=== PATIENT | male | born 1975 | race Caucasian/White ===

== ENCOUNTER 2019-04-21 15:30 | Observation (INO) | payer SELFPAY ==
[2019-04-20] MEDS: ACETAMINOPHEN 500 MG TAB (TYLENOL) PO ONE (20:45)
[~2019-04-21] VITALS: Ht 162.6 cm; Wt 64.0 kg
[2019-04-21] MEDS ORDERED: NS IV 1000 ML 1,000 ML IV SCH (15:49)
[2019-04-21] MEDS ORDERED: NS IV 500 ML 500 ML IV ONE (15:49)
--- NOTE | 2019-04-21 15:59 | ED Fever ---
History of Present Illness General Stated Complaint: HEADACHES,FEVER Source: patient, other Exam Limitations: no limitations (JOSUE HILTON) History of Present Illness Date Seen by Provider: Apr 21, 2019 Time Seen by Provider: 15:30 Initial Comments Patient presents the ER from the urgent care where he was seen in [place], [place] with chief complaint of symptoms starting Sunday including fever Tmax of 102.5, headache, dysuria, right flank pain. No history of kidney stones. No significant medical history. Denies any surgeries. No trauma. No sick contacts. [place] has been in the country for about 2 months originating from [place]. He works with a [employer]. He has not used any antibiotics. He did use some [id number]-[id number] medicine that has phenylephrine, chlorpheniramine and paracetamol in it recently. He says it did not help the headache much. He does not have a history of headaches. No vomiting diarrhea or constipation. Last bowel movement was about 11:00 this morning and was normal, well formed. He has some mild discomfort in epigastric. He does not recall any tick bite, spider bite, bug bite. He did have a itchy rash on his right shoulder that he been treating with lotion for the past couple weeks. For the past 4 days that he's had fever he's also had night sweats and difficulty sleeping. No cough shortness of breath chest pain. (JOSUE IHLTON) Allergies and Home Medications Allergies Coded Allergies: No Known Drug Allergies (Unverified , 04/21/19) Patient Home Medication List Home Medication List Reviewed: Yes (JOSUE HILTON) Review of Systems Review of Systems Constitutional: chills, diaphoresis (night), fever, malaise EENTM: No ear discharge, No hearing loss, No ear pain, No eye pain, No vision loss, No dental problems, No hoarseness, No mouth pain, No nose congestion, No t hroat pain, No throat swelling Respiratory: No cough, No short of breath, No wheezing Cardiovascular: No chest pain, No edema, No Hx of Intervention, No palpitations Gastrointestinal: abdominal pain (occ mild epigastric); No constipation, No diarrhea, No loss of appetite, No nausea, No vomiting Genitourinary: No decreased output, No discharge Musculoskeletal: No back pain, No joint pain Skin: see HPI, pruritus, rash (resolving) (JOSUE HILTON) Past Psnuemz-Ctrlrw-Xuhlil Hx Patient Social History Alcohol Use: Denies Use Recreational Drug Use: No Smoking Status: Never a Smoker Recent Foreign Travel: No Contact w/Someone Who Travel: No (JOSUE HILTON) Physical Exam Vital Signs - First Documented 04/20/19 04/21/19 20:45 15:40 Temp 100.7 Pulse 126 Resp 20 B/P (MAP) 148/83 (104) Pulse Ox 96 (ROVERTO AGUIRRE DO) Capillary Refill : (JOSUE HILTON) Height: '" Weight: lbs. oz. kg; BMI Method: General Appearance: WD/WN, no apparent distress Eyes: Bilateral Eye Normal Inspection, Bilateral Eye PERRL, Bilateral Eye EOMI HEENT: PERRL/EOMI, normal ENT inspection, TMs normal, pharynx normal Neck: non-tender, full range of motion, supple, normal inspection Respiratory: chest non-tender, lungs clear, normal breath sounds, no respiratory distress, no accessory muscle use Cardiovascular: normal peripheral pulses, regular rate, rhythm, no edema, no murmur Gastrointestinal: normal bowel sounds, non tender, soft, no organomegaly, no pulsatile mass; No guarding; other (negative for psoas signs, mesenteric signs, Rovsing sign, Gunderson's sign, McBurney's point tenderness or rebound tenderness.) Extremities: normal range of motion, non-tender, normal inspection, no pedal edema, no calf tenderness, normal capillary refill Neurologic/Psychiatric: alert, normal mood/affect, oriented x 3 Skin: normal color, warm/dry, other (faint dry scaling skin, slightly melanotic over his right shoulder possibly consistent with a fungal rash that appears to be resolving. No bug bites noted on skin survey.) Tenderness to percussion of the right CVA. (JOSUE HILTON) Focused Exam Lactate Level 04/21/19 15:50: Lactic Acid Level 1.07 (ROVERTO AGUIRRE DO) Lactic Acid Level Laboratory Tests Test 04/21/19 15:50 Lactic Acid Level 1.07 MMOL/L (0.50-2.00) (ROVERTO AGUIRRE DO) Procedures/Interventions Discussed Risk,Benefits: Yes Patient Consents: Yes Opening Pressure: 14 Fluid Color: CLEAR Size of Disposal Tray Used: Adult PERFORMED BY S. DANILO, DRUG INSPECTOR (ROVERTO AGUIRRE DO) Progress/Results/Core Measures Suspected Sepsis SIRS Temperature: Pulse: Respiratory Rate: Laboratory Tests 04/21/19 15:50: White Blood Count 9.1 Blood Pressure / Mean: 04/21/19 15:50: Lactic Acid Level 1.07 Laboratory Tests 04/21/19 15:50: Creatinine 1.18, INR Comment 1.0, Platelet Count 177, Total Bilirubin 0.4 (JOSUE HILTON) Results/Orders Lab Results Laboratory Tests Test 04/21/19 15:50 04/21/19 16:00 04/21/19 16:30 04/21/19 19:57 Range/Units White Blood Count 9.1 4.3-11.0 10^3/uL Red Blood Count 4.67 4.35-5.85 10^6/uL Hemoglobin 13.1 L 13.3-17.7 G/DL Hematocrit 39 L 40-54 % Mean Corpuscular Volume 83 80-99 FL Mean Corpuscular Hemoglobin 28 25-34 PG Mean Corpuscular Hemoglobin Concent 34 32-36 G/DL Red Cell Distribution Width 12.7 10.0-14.5 % Platelet Count 177 130-400 10^3/uL Mean Platelet Volume 9.6 7.4-10.4 FL Neutrophils (%) (Auto) 62 42-75 % Lymphocytes (%) (Auto) 22 12-44 % Monocytes (%) (Auto) 11 0-12 % Eosinophils (%) (Auto) 4 0-10 % Basophils (%) (Auto) 1 0-10 % Neutrophils # (Auto) 5.7 1.8-7.8 X 10^3 Lymphocytes # (Auto) 2.0 1.0-4.0 X 10^3 Monocytes # (Auto) 1.0 0.0-1.0 X 10^3 Eosinophils # (Auto) 0.4 H 0.0-0.3 10^3/uL Basophils # (Auto) 0.1 0.0-0.1 10^3/uL Prothrombin Time 13.4 12.2-14.7 SEC INR Comment 1.0 0.8-1.4 Activated Partial Thromboplast Time 30 24-35 SEC Sodium Level 136 135-145 MMOL/L Potassium Level 3.8 3.6-5.0 MMOL/L Chloride Level 101 98-107 MMOL/L Carbon Dioxide Level 26 21-32 MMOL/L Anion Gap 9 5-14 MMOL/L Blood Urea Nitrogen 13 7-18 MG/DL Creatinine 1.18 0.60-1.30 MG/DL Estimat Glomerular Filtration Rate > 60 BUN/Creatinine Ratio 11 Glucose Level 113 H 70-105 MG/DL Lactic Acid Level 1.07 0.50-2.00 MMOL/L Calcium Level 9.1 8.5-10.1 MG/DL Corrected Calcium 8.9 8.5-10.1 MG/DL Total Bilirubin 0.4 0.1-1.0 MG/DL Aspartate Amino Transf (AST/SGOT) 77 H 5-34 U/L Alanine Aminotransferase (ALT/SGPT) 106 H 0-55 U/L Alkaline Phosphatase 103 40-136 U/L Total Protein 8.2 6.4-8.2 GM/DL Albumin 4.2 3.2-4.5 GM/DL Monoscreen NEGATIVE NEGATIVE Group A Streptococcus Screen NEGATIVE NEGATIVE Urine Color YELLOW Urine Clarity CLEAR Urine pH 6 5-9 Urine Specific [place] 1.020 1.016-1.022 Urine Protein 3+ H NEGATIVE Urine Glucose (UA) NEGATIVE NEGATIVE Urine Ketones 1+ H NEGATIVE Urine Nitrite NEGATIVE NEGATIVE Urine Bilirubin NEGATIVE NEGATIVE Urine Urobilinogen NORMAL NORMAL MG/DL Urine Leukocyte Esterase 1+ H NEGATIVE Urine RBC (Auto) 2+ H NEGATIVE Urine RBC NONE /HPF Urine WBC 2-5 /HPF Urine Squamous Epithelial Cells RARE /HPF Urine Crystals NONE /LPF Urine Bacteria MODERATE H /HPF Urine Casts NONE /LPF Urine Mucus MODERATE H /LPF Urine Culture Indicated CULTURE PENDING CSF Tube Number 4 CSF Appearance CLEAR CSF Color COLORLESS CSF WBC 0 0-5 CELLS CSF RBC 2 H 0-0 CELLS CSF Lymphocytes % CSF Mononuclear WBCs % CSF Polynuclear WBCs % CSF Glucose 58 50-80 MG/DL CSF Total Protein 28 15-40 MG/DL Test 04/21/19 21:21 Range/Units (ROVERTO AUGIRRE DO) Micro Results Microbiology 04/21/19 Influenza Types A,B Antigen (JAMES) - Final, Complete (TIMOTHYROVERTO K ) My Orders Orders - ROVERTO AGUIRRE DO Monotest (04/21/19 18:24) Csf Cell Count (8/26/19 20:07) Csf Glucose (04/21/19 20:07) Csf Total Protein (04/21/19 20:07) Csf Culture (04/21/19 20:07) Ed Iv/Invasive Line Start (04/21/19 20:19) Lactated Ringers (Lr 1000 Ml Iv Solution (04/21/19 20:19) Acetaminophen Tablet (Tylenol Tablet) (04/21/19 20:30) Hepatitis Panel Acute (04/21/19 21:14) Tick Panel With Lyme Eia (04/21/19 21:14) West Nile Virus G&M Hansa Csf (04/21/19 21:14) West Nile Virus Igg & M (04/21/19 21:14) Doxycycline Injection (Vibramycin Inject (04/21/19 21:45) Cmv Igg & Igm Ab (04/21/19 21:31) Nina Ponce Virus Profile (04/21/19 21:31) (ROVERTO AGUIRRE DO) Medications Given in ED Current Medications Medications Dose Ordered Sig/Isaac Route Start Time Stop Time Status Last Admin Dose Admin Acetaminophen 1,000 mg ONCE ONCE PO 04/21/19 20:30 04/21/19 20:31 DC 04/20/19 20:45 1,000 MG Cefepime HCl 1000 mg/Sterile Water 10 ml @ 200 mls/hr ONCE ONCE IV 04/21/19 16:00 04/21/19 16:02 DC 04/21/19 16:15 200 MLS/HR Doxycycline Hyclate 100 mg/ Sodium Chloride 100 ml @ 100 mls/hr ONCE ONCE IV 04/21/19 21:45 04/21/19 22:44 04/21/19 21:45 100 MLS/HR Ketorolac Tromethamine 30 mg ONCE ONCE IVP 04/21/19 16:00 04/21/19 16:01 DC 04/21/19 16:15 30 MG Lactated Ringer's 1,000 ml @ 0 mls/hr Q0M ONCE IV 04/21/19 20:19 04/21/19 20:20 DC 04/21/19 20:25 0 MLS/HR Pantoprazole 40 mg ONCE ONCE IV 04/21/19 16:00 04/21/19 16:01 DC 04/21/19 16:15 40 MG Sodium Chloride 500 ml @ 0 mls/hr Q0M ONCE IV 04/21/19 15:49 04/21/19 15:52 DC 04/21/19 17:20 500 MLS/HR (ROVERTO AGUIRRE DO) Vital Signs/I&O 04/20/19 04/21/19 04/21/19 20:45 15:40 16:15 Temp 100.7 103.3 103.3 Pulse 126 Resp 20 B/P (MAP) 148/83 (104) Pulse Ox 96 (ROVERTO AGUIRRE DO) Vital Signs/I&O Capillary Refill : (JOSUE HILTON) Progress Note #1: Time: 16:00 Progress Note Temperature 103.3 tympanic. Ketorolac for his discomfort and fever. He's having urinary symptoms so we'll haydee those first but if his urine looks clean then I would get a CT of his head and consider a lumbar puncture. Chest x-ray, septic workup, cefepime. Progress Note #2: Time: 17:30 Progress Note The patient is feeling better and his fever is coming down. There are red blood cells in the dipstick but not on the micro-. It is possible that the red blood cells have lysed. Plan to get a CT of the abdomen pelvis kidney stone study. While we have it we'll get a CT of his head since he did have a fever and headache. White blood cells and the rest of his workup are fairly benign. Very mild transaminitis be worked up outpatient. Mild anemia. (JOSUE HILTON) Progress Note : Progress Note 182--ASSUMED CARE FROM DR. HILTON, CT RESULTS PENDING PT STATES HE IS FEELING BETTER, HEADACHE IS ONLY VERY MILD AND DECLINES ANY MEDICATION FOR HEADACHE AT THIS TIME TEMP STARTED TO GO UP AGAIN--UP TO 100.1--ADDITIONAL TYLENOL AND FLUIDS ORDERED. VITALS REMAINED STABLE NO DETERIORATION IN PT'S CONDITION DURING ER STAY (ROVERTO AGUIRRE DO) Diagnostic Imaging Diagonstic Imaging: Xray Plain Films/CT/US/NM/MRI: chest (2v) Comments NAME: [facility] REC#: [id number] PHYSICIAN: JOSUE HILTON MD CC: TERELL DYE DO; JOSUE HILTON Page 1 of 1 RADIOLOGY REPORT [facility] [place] [place] CC: TERELL DYE DO; JOSUE HILTON Page 1 of 1 RADIOLOGY REPORT NAME: [facility] REC#: [id number] PT STATUS: REG ER : 1975 PHYSICIAN: JOSUE HILTON MD ADMIT DATE: 04/21/19/ER Signed Date of Exam: 04/21/19 CHEST PA/LAT (2 VIEW) INDICATION: Fever, inability to urinate. TECHNIQUE: Two view chest 4:40 PM CORRELATION STUDY: None FINDINGS: The heart size is upper limits of normal. The mediastinal configuration and pulmonary vasculature are within normal limits. The lungs are clear with no consolidating infiltrate. There is no significant pleural effusion or pneumothorax. Visualized osseous structures are unremarkable. IMPRESSION: 1. No radiographic evidence for acute abnormality of the chest. Dictated by: Dictated on workstation # [id number] Dict: 04/21/191654 Trans: 04/21/191703 Interpreted by: TERELL DYE DO Electronically signed by: TERELL DYE DO 04/21/191703 Reviewed: Reviewed by Nc Diagonstic Imaging: CT (without IV contrast) Plain Films/CT/US/NM/MRI: head Comments NAME: [facility] REC#: [id number] PHYSICIAN: JOSUE HILTON MD CC: SARAY SCHMIDT MD; JOSUE HILTON Page 1 of 1 RADIOLOGY REPORT [facility] [place], [place] CC: SARAY SCHMIDT MD; JOSUE HILTON Page 1 of 1 RADIOLOGY REPORT NAME: [facility] REC#: [id number] PT STATUS: REG ER : 1975 PHYSICIAN: JOSUE HILTON MD ADMIT DATE: 04/21/19/ER Signed Date of Exam: 04/21/19 CT HEAD WO PROCEDURE: CT head without contrast. TECHNIQUE: Multiple contiguous axial images were obtained through the brain without the use of intravenous contrast. Auto Exposure Controls were utilized during the CT exam to meet ALARA standards for radiation dose reduction. INDICATION: Headache and fever. COMPARISON: None available. FINDINGS: No hyperdense hemorrhage or space-occupying mass. No hydrocephalus or midline shift. Hardin-white matter differentiation is preserved. Basilar cisterns are patent. No fracture of the skull. Mastoid air cells and paranasal sinuses are clear. Orbits are normal. IMPRESSION: No acute intracranial process by CT. Dictated by: Dictated on workstation # [id number] Dict: 04/21/191821 Trans: 04/21/191838 Interpreted by: SARAY SCHMIDT MD Electronically signed by: SARAY SCHMIDT MD 04/21/191838 Reviewed: Reviewed by Nc Diagonstic Imaging: CT (without IV contrast kidney stone study) Plain Films/CT/US/NM/MRI: abdomen, pelvis Comments NAME: [facility] REC#: [id number] PHYSICIAN: JOSUE HILTON MD CC: SARAY SCHMIDT MD; JOSUE HILTON Page 2 of 2 RADIOLOGY REPORT [facility] [place] [place] CC: SARAY SCHMIDT MD; JOSUE HILTON Page 1 of 2 RADIOLOGY REPORT NAME: [facility] REC#: [id number] PT STATUS: REG ER : 1975 PHYSICIAN: JOSUE HILTON MD ADMIT DATE: 04/21/19/ER Signed Date of Exam: 04/21/19 CT ABD/PELVIS WO(KIDNEY STONE) PROCEDURE: CT urinary tract, rule out kidney stone. TECHNIQUE: Multiple contiguous axial images were obtained through the abdomen and pelvis without the use of intravenous contrast. Auto Exposure Controls were utilized during the CT exam to meet ALARA standards for radiation dose reduction. INDICATION: Fever with pain during urination. COMPARISON: None available. FINDINGS: Evaluation of the abdominal viscera is mildly limited without contrast. Additionally, there is mild patient respiratory motion artifact in the upper abdomen that mildly limits assessment in this region. Lower chest: The lung bases are clear. No pericardial or pleural effusion. Peritoneum: No free intraperitoneal air or fluid. Liver and biliary system: Unenhanced liver is normal. Gallbladder is contracted without radiopaque gallstones. Spleen and Pancreas: Spleen is normal. Unenhanced pancreas is grossly normal. Adrenals: Normal. tract: A 4 mm nonobstructing stone is present in the mid aspect of the right kidney. No ureteral stones or obstructive uropathy on either side. The urinary bladder is well distended without radiopaque stones. Prostate is normal in appearance. GI tract: Stomach is partially filled with air and there is no discrete wall thickening. No bowel obstruction. No pericolonic inflammatory changes. Appendix is normal. Vasculature and Lymph nodes: Normal caliber aorta. No abdominal or pelvic lymphadenopathy. Musculoskeletal: No concerning osseous lesion. IMPRESSION: 1. There is a 4 mm nonobstructing stone in the mid aspect of the right kidney. 2. No ureteral stones or obstructive uropathy. Dictated by: Dictated on workstation # [id number] Dict: 04/21/191822 Trans: 04/21/191838 Interpreted by: SARAY SCHMIDT MD Electronically signed by: SARAY SCHMIDT MD 04/21/191838 Reviewed: Reviewed by Me (JOSUE HILTON) Comments CXR--NO ACUTE PROCESS, PER RADIOLOGIST REPORT AT 1824 CT HEAD--NO ACUTE PROCESS CT ABDOMEN/PELVIS--NO ACUTE PROCESS, NON-OBSTRUCTING RIGHT RENAL STONE PER RADIOLOGIST REPORTS AT 1834 (ROVERTO AGUIRRE DO) Departure Communication (Admissions) 1838--CALLED [facility] [facility], TO CONTACT ANESTHESIA TO DO L.P. PROCEDURE EXPLAINED TO PT AND HE AGREES TO PROCEDURE. 1929--Mandie CARRASCO CRNA HERE TO DO L.P. 2042--CALLED [facility] FOR CONSULT. 2045--ADDITIONAL INFORMATION GIVEN TO [facility]. 2052--[facility] CALLED BACK. [facility] 2105--SPOKE WITH DR. VILLANUEVA, ADVICE NOTED AND ADDITIONAL TESTS ORDERED--PE RIPHERAL SMEAR, TICK PANEL, WEST NILE PANEL. WILL ALSO ADD EBV AND CMV AND HEPATITIS PANEL . SHE ADVISES TO CONTINUE CEFEPIME, AND ADD DOXYCYCLINE AT THIS POINT, PENDING FURTHER TEST RESULTS. HER ADVICE MUCH APPRECIATED. 2120--SPOKE WITH DR. GUZMÁN, HOSPITALIST, ACCEPTS PT FOR ADMIT. (TIMOTHY,ROVERTO K DO) Impression Primary Impression: Fever Qualified Codes: R50.9 - Fever, unspecified Additional Impressions: UTI (urinary tract infection) Qualified Codes: N39.0 - Urinary tract infection, site not specified MILDLY ELEVATED LIVER ENZYMES Headache Qualified Codes: R51 - Headache Disposition: 09 ADMITTED INPATIENT Condition: Stable Admissions Decision to Admit Reason: Admit from ER (General) Decision to Admit/Date: Apr 21, 2019 Time/Decision to Admit Time: 21:25 (ROVERTO AGUIRRE DO) Departure-Patient Inst. Referrals: NO,LOCAL PHYSICIAN (PCP/Family) Primary Care Physician JOSUE HILTON Apr 21, 2019 15:59 ROVERTO AGUIRRE DO Apr 21, 2019 18:35
[2019-04-21] MEDS ORDERED: KETOROLAC 30 MG/ML VIAL IVP ONE (16:00)
[2019-04-21] MEDS ORDERED: ACETAMINOPHEN 500 MG TAB (TYLENOL) PO PRN (16:00)
[2019-04-21] MEDS ORDERED: CEFEPIME INJECTION 1,000 MG in WATER (STERILE) FOR INJECTION 10 ML IV ONE (16:00)
[2019-04-21] MEDS ORDERED: PANTOPRAZOLE 40 MG (PROTONIX) VIAL IV ONE (16:00)
[2019-04-21 16:09] LABS: BASOPHILS # (AUTO) 0.1 10^3/uL (0.0-0.1); BASOPHILS % (AUTO) 1 % (0-10); EOSINOPHILS # (AUTO) 0.4 10^3/uL (0.0-0.3); EOSINOPHILS % (AUTO) 4 % (0-10); HEMATOCRIT 39 % (40-54); HEMOGLOBIN 13.1 G/DL (13.3-17.7); LYMPHOCYTES % (AUTO) 22 % (12-44); MEAN CORPUSCULAR HEMOGLOBIN 28 PG (25-34); MEAN CORPUSCULAR HGB CONC 34 G/DL (32-36); MEAN CORPUSCULAR VOLUME 83 FL (80-99); MEAN PLATELET VOLUME 9.6 FL (7.4-10.4); MONOCYTES % (AUTO) 11 % (0-12); NEUTROPHILS # (AUTO) 5.7 X 10^3 (1.8-7.8); NEUTROPHILS % (AUTO) 62 % (42-75); PLATELET COUNT 177 10^3/uL (130-400); RED CELL DISTRIBUTION WIDTH 12.7 % (10.0-14.5); WHITE BLOOD COUNT 9.1 10^3/uL (4.3-11.0)
[2019-04-21 16:20] LABS: BILIRUBIN,URINE NEGATIVE (NEGATIVE); CLARITY,URINE CLEAR; COLOR,URINE YELLOW; GLUCOSE, URINE (UA) NEGATIVE (NEGATIVE); KETONES,URINE 1+ (NEGATIVE); LEUKOCYTE ESTERASE ,URINE 1+ (NEGATIVE); NITRITE,URINE NEGATIVE (NEGATIVE); PH,URINE 6 (5-9); PROTEIN,URINE 3+ (NEGATIVE); UROBILINOGEN,URINE NORMAL (NORMAL)
[2019-04-21 16:22] LABS: PROTHROMBIN TIME PATIENT 13.4 SEC (12.2-14.7)
[2019-04-21 16:28] LABS: ALANINE AMINOTRANSFERASE 106 U/L (0-55); ALBUMIN 4.2 GM/DL (3.2-4.5); ALKALINE PHOSPHATASE 103 U/L (40-136); BILIRUBIN,TOTAL 0.4 MG/DL (0.1-1.0); BUN/CREATININE RATIO 11; CALCIUM 9.1 MG/DL (8.5-10.1); CARBON DIOXIDE 26 MMOL/L (21-32); CHLORIDE 101 MMOL/L (98-107); CREATININE SERUM 1.18 MG/DL (0.60-1.30); GFR ESTIMATED > 60; GLUCOSE 113 MG/DL (70-105); POTASSIUM 3.8 MMOL/L (3.6-5.0); SODIUM 136 MMOL/L (135-145); TOTAL PROTEIN 8.2 GM/DL (6.4-8.2)
[2019-04-21 17:05] LABS: BACTERIA,URINE MODERATE /HPF; SQUAMOUS EPITHELIAL CELL,UR RARE /HPF
--- NOTE | 2019-04-21 17:06 | Diagnostic Imaging Report ---
INDICATION: Fever, inability to urinate. TECHNIQUE: Two view chest 4:40 PM CORRELATION STUDY: None FINDINGS: The heart size is upper limits of normal. The mediastinal configuration and pulmonary vasculature are within normal limits. The lungs are clear with no consolidating infiltrate. There is no significant pleural effusion or pneumothorax. Visualized osseous structures are unremarkable. IMPRESSION: 1. No radiographic evidence for acute abnormality of the chest. Dictated by: Dictated on workstation # [id number]
--- NOTE | 2019-04-21 17:15 | NUR ---
PT TEMP 100.0
--- NOTE | 2019-04-21 18:00 | NUR ---
TEMP 98.6
--- NOTE | 2019-04-21 18:30 | Diagnostic Imaging Report ---
PROCEDURE: CT urinary tract, rule out kidney stone. TECHNIQUE: Multiple contiguous axial images were obtained through the abdomen and pelvis without the use of intravenous contrast. Auto Exposure Controls were utilized during the CT exam to meet ALARA standards for radiation dose reduction. INDICATION: Fever with pain during urination. COMPARISON: None available. FINDINGS: Evaluation of the abdominal viscera is mildly limited without contrast. Additionally, there is mild patient respiratory motion artifact in the upper abdomen that mildly limits assessment in this region. Lower chest: The lung bases are clear. No pericardial or pleural effusion. Peritoneum: No free intraperitoneal air or fluid. Liver and biliary system: Unenhanced liver is normal. Gallbladder is contracted without radiopaque gallstones. Spleen and Pancreas: Spleen is normal. Unenhanced pancreas is grossly normal. Adrenals: Normal. tract: A 4 mm nonobstructing stone is present in the mid aspect of the right kidney. No ureteral stones or obstructive uropathy on either side. The urinary bladder is well distended without radiopaque stones. Prostate is normal in appearance. GI tract: Stomach is partially filled with air and there is no discrete wall thickening. No bowel obstruction. No pericolonic inflammatory changes. Appendix is normal. Vasculature and Lymph nodes: Normal caliber aorta. No abdominal or pelvic lymphadenopathy. Musculoskeletal: No concerning osseous lesion. IMPRESSION: 1. There is a 4 mm nonobstructing stone in the mid aspect of the right kidney. 2. No ureteral stones or obstructive uropathy. Dictated by: Dictated on workstation # [id number]
--- NOTE | 2019-04-21 18:33 | Diagnostic Imaging Report ---
PROCEDURE: CT head without contrast. TECHNIQUE: Multiple contiguous axial images were obtained through the brain without the use of intravenous contrast. Auto Exposure Controls were utilized during the CT exam to meet ALARA standards for radiation dose reduction. INDICATION: Headache and fever. COMPARISON: None available. FINDINGS: No hyperdense hemorrhage or space-occupying mass. No hydrocephalus or midline shift. Hardin-white matter differentiation is preserved. Basilar cisterns are patent. No fracture of the skull. Mastoid air cells and paranasal sinuses are clear. Orbits are normal. IMPRESSION: No acute intracranial process by CT. Dictated by: Dictated on workstation # [id number]
--- NOTE | 2019-04-21 18:46 | NUR ---
ANESTHESIA NOTIFIED FOR NEED OF LUMBAR PUNCTURE
--- NOTE | 2019-04-21 18:51 | NUR ---
Report given to SEVERO Cho to assume care of pt @ this time.
--- NOTE | 2019-04-21 18:52 | NUR ---
CONSENT FOR LUMBAR PUNCTURE SIGNED BY PT
--- NOTE | 2019-04-21 19:30 | NUR ---
Anesthesia in room with pt performing LP.
--- NOTE | 2019-04-21 20:15 | NUR ---
CSF tube #1 @1953 CSF tube #2 @1956 CSF tube #3 @1999 CSF tube #4 @2006 This RN walked CSF fluid to lab and handed tubes to lab staff.
[2019-04-21] MEDS ORDERED: LACTATED RINGERS 1,000 ML IV ONE ×2 (20:19→22:51)
--- NOTE | 2019-04-21 20:25 | NUR ---
Tympanic temp 100.7. Dr. Paula notified.
--- NOTE | 2019-04-21 20:31 | Anesthesia-Procedure Note ---
Procedures/Interventions Procedure Start/Stop/Diagnosis Date of Procedure: Apr 21, 2019 Start Time: 19:45 Stop Time: 20:10 Lumbar Puncture Discussed Risk,Benefits: Yes Patient Consents: Yes Position: Lying, L4-5, Right Sterile Technique: Yes Opening Pressure: 15 cmH20 Fluid Color: clear Spinal Needle Used: Other (25 g 3 1/2 inch Pencan) Procedure Notes Called to ED8 for diagnostic LP. Patient is from [facility] with c/o headache and fever for 3 days, unknown origin. Dr. Paula consulting ms for LP. Brief history obtained including no blood thinners. Ricks explained. Consent signed. CT negative and Platelet count >100,000. Patient was placed right lateral. Good spaces felt and sterile technique used to prep area. 2 cc Lidocaine used to localize area. 20g needle used for introducer. 3.5 inch 25g Pencan used to obtain CSF. Clear fluid noted and slow flowing. Opening pressure 15 cmH20. 3 cc collected in each of 4 vials. Patient tolerated well. Needle removed and bandaid applied over site. Discharge instructions given, pertaining to the procedure. Questions answered. We will be available for further consultation. VINCENT CARRASCO CRNA Apr 21, 2019 20:31
[2019-04-21 20:36] LABS: CSF TOTAL PROTEIN 28 MG/DL (15-40)
[2019-04-21 20:39] LABS: CSF GLUCOSE 58 MG/DL (50-80)
[2019-04-21 20:40] LABS: APPEARANCE,CSF CLEAR; COLOR,CSF COLORLESS; WHITE BLOOD CELL,CSF 0 CELLS (0-5)
[2019-04-21 20:41] LABS: CSF TUBE NUMBER 4; RED BLOOD CELL,CSF 2 CELLS (0-0)
[2019-04-21] MEDS: ACETAMINOPHEN 500 MG TAB (TYLENOL) PO ONE (20:45)
[2019-04-21] MEDS ORDERED: DOXYCYCLINE INJECTION 100 MG in NS (IVPB) 100 ML IV ONE (21:45)
[2019-04-21 22:34] VITALS: BP 123/82
[2019-04-21] MEDS: LACTATED RINGERS 1,000 ML IV SCH (23:26)
[2019-04-21] MEDS ORDERED: ONDANSETRON 4 MG/2 ML (SDV) Z0FRAN IV PRN (23:30)
[2019-04-22 00:45] VITALS: BP 126/78
[2019-04-22] MEDS: KETOROLAC 30 MG/ML VIAL IVP PRN ×3 (01:07→09:52)
[2019-04-22 04:00] VITALS: BP 115/78
[2019-04-22] MEDS: LACTATED RINGERS 1,000 ML IV SCH (06:07)
[2019-04-22] MEDS: ACETAMINOPHEN 500 MG TAB (TYLENOL) PO PRN ×2 (06:19→19:37)
--- NOTE | 2019-04-22 07:00 | NUR ---
PT TEMP ELEVATED. ICE PACKS PLACED BEHIND NECK AND UNDER ARMS BILAT.
[2019-04-22 07:23] LABS: ABSOLUTE RETIC # 30 10e9/L (24-90); BASOPHILS % (AUTO) 0 % (0-10); EOSINOPHILS # (AUTO) 0.2 10^3/uL (0.0-0.3); EOSINOPHILS % (AUTO) 3 % (0-10); HEMATOCRIT 36 % (40-54); HEMOGLOBIN 11.9 G/DL (13.3-17.7); LYMPHOCYTES # (AUTO) 1.3 X 10^3 (1.0-4.0); LYMPHOCYTES % (AUTO) 15 % (12-44); MEAN CORPUSCULAR HEMOGLOBIN 28 PG (25-34); MEAN CORPUSCULAR HGB CONC 34 G/DL (32-36); MEAN CORPUSCULAR VOLUME 83 FL (80-99); MEAN PLATELET VOLUME 9.5 FL (7.4-10.4); MONOCYTES # (AUTO) 0.9 X 10^3 (0.0-1.0); MONOCYTES % (AUTO) 10 % (0-12); NEUTROPHILS # (AUTO) 6.2 X 10^3 (1.8-7.8); NEUTROPHILS % (AUTO) 72 % (42-75); PLATELET COUNT 152 10^3/uL (130-400); RED CELL DISTRIBUTION WIDTH 12.7 % (10.0-14.5); RETICULOCYTE % 0.69 % (0.50-2.40); WHITE BLOOD COUNT 8.6 10^3/uL (4.3-11.0)
--- NOTE | 2019-04-22 07:41 | History & Physical-Hospitalist ---
DAKOTA LEWIS,MED STUDENT 04/22/19 7:41am: History of Present Illness HPI/Chief Complaint Taken from ER note "Patient presents the ER from the urgent care where he was seen in [place], [place] with chief complaint of symptoms starting Sunday including fever Tmax of 102.5, headache, dysuria, right flank pain. No history of kidney stones. No significant medical history. Denies any surgeries. No trauma. No sick contacts. He has been in the country for about 2 months originating from [place], he was in [place] 1 month ago for business. He works with a [employer] company. He has not used any antibiotics. He did use some qvro-ill-cjkwczl medicine that has phenylephrine, chlorpheniramine and paracetamol in it recently. He says it did not help the headache much. He does not have a history of headaches. No vomiting diarrhea or constipation. Last bow el movement was about 11:00 yesterday morning and was normal, well formed. He has some mild discomfort in epigastric that did cause nausea. He does not recall any tick bite, spider bite, bug bite. He did have a itchy rash on his right shoulder that he been treating with lotion for the past couple weeks. For the past 4 days that he's had fever he's also had night sweats and difficulty sleeping. No cough shortness of breath chest pain." He also denies changes in hearing, vision and dizzness. Source: patient Date Seen 04/22/19 Attending Physician Rajinder Olivera MD PCP No,Local Physician Referring Physician Date of Admission Apr 21, 2019 at 21:25 Home Medications & Allergies Home Medications Reviewed patient Home Medication Reconciliation performed by pharmacy medication reconciliations hvac controls technician and/or nursing. Patients Allergies have been reviewed. Allergies Allergies Coded Allergies No Known Drug Allergies (Unverified04/21/19) Past Ckkzuty-Stwmze-Ezemnn Hx Patient Social History Alcohol Use: Denies Use Recreational Drug Use: No Smoking Status: Never a Smoker Recent Foreign Travel: Yes (Was in [place] 1 month ago for business ) Contact w/other who traveled: No Recent Hopitalizations: No Recent Infectious Disease Expo: No Seasonal Allergies Seasonal Allergies: No Past Medical History History of Blood Disorders: No Review of Systems Constitutional: see HPI EENTM: see HPI Respiratory: see HPI Cardiovascular: see HPI Skin: see HPI Physical Exam Physical Exam Vital Signs Vital Signs - First Documented 04/21/19 04/21/19 15:40 22:27 Temp 103.3 Pulse 126 Resp 20 B/P (MAP) 148/83 (104) Pulse Ox 96 O2 Delivery Room Air Capillary Refill : Less Than 3 Seconds Height, Weight, BMI Height: 5'4.00" Weight: 141lbs. 0.0oz. 63.703823qm; 24.2 BMI Method:Stated General Appearance: No Apparent Distress, Other (well developed) Neck: Non Tender, Supple Respiratory: No Accessory Muscle Use, No Respiratory Distress Cardiovascular: Regular Rate, Rhythm, No Edema, Normal Peripheral Pulses Gastrointestinal: No Pulsatile Mass, Soft; No Rebound; Tenderness (in the RLQ and LLQ ) Extremity: Non Tender, No Calf Tenderness, No Pedal Edema Neurologic/Psychiatric: Alert, Oriented x3, Normal Mood/Affect Skin: Normal Color, Damp (and warm ) Results Results/Procedures Labs Laboratory Tests 04/21/19 15:50 04/22/19 07:15 Patient resulted labs reviewed. Assessment/Plan Admission Diagnosis Sepsis Assessment and Plan sepsis UA - positive for protein, ketones, leuokocyte esterase, RBCs (auto), Bater[place], - negative for RBCs urine culture pending CMP CBC w/diff abdominal/pelvic CT none obstructive kidney stone in R ureter head CT - no acute processes noted CXR - no acute processes noted IV doxycycline and cefepime Lumbar puncture w/ culture tick panel checking for [place], EBV, CMV, GAS, legionella antigen, parainfluenza strains , RSV, adenovirus, influenza a/b, e. chaffeensis, Hep A, Hep b Pulmonology consult FENGIPPX hep lock fluids regular diet SCDs Clinical Quality Measures DVT/VTE Risk/Contraindication: Risk Factor Score Per Nursin RFS Level Per Nursing on Admit: 1=Low/No VTE PPX ROXANNA GRANT MD 04/22/19 3:24pm: History of Present Illness Time Seen by a Provider: 13:30 Past Ticwghe-Kytvyy-Tzxprt Hx Past Med/Social Hx: Reviewed Nursing Past Med/Soc Hx Patient Social History Employed/Student: employed Smoking Status: Smoker Current Status [employer] Family History Reviewed Nursing Family Hx Review of Systems Constitutional: fever, malaise EENTM: no symptoms reported Respiratory: no symptoms reported Cardiovascular: no symptoms reported Gastrointestinal: no symptoms reported Genitourinary: dysuria Musculoskeletal: no symptoms reported Skin: rash Psychiatric/Neurological: Headache Physical Exam Physical Exam General Appearance: No Apparent Distress, WD/WN HEENT: Moist Mucous Membranes; No Scleral Icterus (L), No Scleral Icterus (R) Neck: Full Range of Motion, Normal Inspection, Non Tender, Supple Respiratory: Lungs Clear, No Accessory Muscle Use, No Respiratory Distress Cardiovascular: Regular Rate, Rhythm, No Edema, No Murmur, Normal Peripheral Pulses Gastrointestinal: Normal Bowel Sounds, Non Tender, Soft Extremity: Normal Capillary Refill, Non Tender, No Calf Tenderness, No Pedal Edema Neurologic/Psychiatric: Alert, Oriented x3, Normal Mood/Affect; No Aphasia, No Facial Droop Skin: Normal Color, Warm/Dry Results Results/Procedures Imaging: Reviewed Imaging Report Assessment/Plan Admission Diagnosis Admission Status: Observation Assessment and Plan Complex management with unclear etiology of fever. Given recent travel history will expand differential and work up as above. Continue on Cefepime and Doxycycline per ID recs from [facility]. Has now defervesced and feels well. Await infectious workup and cultures. Supervisory-Addendum Brief Verification & Attestation Participated in pt care: history, MDM, physical Personally performed: exam, history, MDM, supervision of care Care discussed with: Medical Student Procedures: n/a Results interpretation: Verified all documentation Verification and Attestation of Medical Student E/M Service A medical student performed and documented this service in my presence. I reviewed and verified all information documented by the medical student and made modifications to such information, when appropriate. I personally performed the physical exam and medical decision making. Roxanna Grant, Apr 22, 2019,15:28 DAKOTA LEWIS,MED STUDENT Apr 22, 2019 7:41 am ROXANNA GRANT MD Apr 22, 2019 3:24 pm
[2019-04-22 07:46] LABS: ALANINE AMINOTRANSFERASE 67 U/L (0-55); ALBUMIN 3.4 GM/DL (3.2-4.5); ALKALINE PHOSPHATASE 94 U/L (40-136); BILIRUBIN,TOTAL 0.5 MG/DL (0.1-1.0); BUN/CREATININE RATIO 9; CALCIUM 8.1 MG/DL (8.5-10.1); CARBON DIOXIDE 20 MMOL/L (21-32); CHLORIDE 103 MMOL/L (98-107); CREATININE SERUM 0.91 MG/DL (0.60-1.30); GFR ESTIMATED > 60; GLUCOSE 107 MG/DL (70-105); POTASSIUM 3.6 MMOL/L (3.6-5.0); SODIUM 135 MMOL/L (135-145); TOTAL PROTEIN 6.7 GM/DL (6.4-8.2)
[2019-04-22] MEDS ORDERED: [UNRECOGNIZED DRUG - OTHER] PO (08:33)
--- NOTE | 2019-04-22 08:34 | NUR ---
PATIENT HAS OTC MEDICATION IN HIS POCKET HE STATES HE HAS BEEN TAKING SINCE SYMPTOMS STARTED. HE DOES NOT TAKE ANYTHING REGULARLY. HE WAS UNSURE OF WHAT PHARMACY HE WANTED TO USE BUT DECIDED [facility] FOR NOW. I EXPLAINED IT COULD BE CHANGED LATER IF NEEDED.
--- NOTE | 2019-04-22 08:42 | Pulmonary Consultation ---
History of Present Illness History of Present Illness Date of Consultation 04/22/19 08:37 Time Seen by Provider: 13:36 Date of Admission History of Present Illness Patient presents the ER from the urgent care where he was seen in [place], [place] with chief complaint of symptoms starting Sunday including fever Tmax of 102.5, headache, dysuria, right flank pain. No history of kidney stones. No significant medical history. Denies any surgeries. No trauma. No sick contacts. He has been in the country for about 2 months originating from [place], he was in [place] 1 month ago for business. He works with a [employer]. He has not used any antibiotics. He did use some vgle-efc-prcbnqo medicine that has phenylephrine, chlorpheniramine and paracetamol in it recently. He says it did not help the headache much. He does not have a history of headaches. No vomiting diarrhea or constipation. Last bowel movement was about 11:00 yesterday morning and was normal, well formed. He has some mild discomfort in epigastric that did cause nausea. He does not recall any tick bite, spider bite, bug bite. He did have a itchy rash on his right shoulder that he been treating with lotion for the past couple weeks. For the past 4 days that he's had fever he's also had night sweats and difficulty sleeping. No cough shortness of breath chest pain." He also denies changes in hearing, vision and dizzness Allergies and Home Medications Allergies Coded Allergies: No Known Drug Allergies (Unverified , 04/21/19) Home Medications Cefdinir 300 Mg Capsule, 300 MG PO BID Prescribed by: ROXANNA BECERRA on 04/24/19 1333 Doxycycline Hyclate 100 Mg Capsule, 100 MG PO BID Prescribed by: ROXANNA BECERRA on 04/24/19 1333 [Mixagrip Flu] , 1 TAB PO QID PRN for COLD/FLU SYMPTOMS, (Reported) PARACETAMOL 500MG, PHENYLEPHRINE 10MG, CHLORPHENERAMINE 2MG Past Dikkywe-Mftfvl-Xxxwto Hx Patient Social History Alcohol Use: Denies Use Recreational Drug Use: No Smoking Status: Never a Smoker Recent Foreign Travel: No Contact w/Someone Who Travel: No Recent Infectious Disease Expo: No Recent Hopitalizations: No Physical Abuse: No Sexual Abuse: No Seasonal Allergies Seasonal Allergies: No Past Medical History Surgeries: No Respiratory: No Cardiac: No Neurological: No Genitourinary: No Gastrointestinal: No Musculoskeletal: No Endocrine: No HEENT: No Cancer: No Psychosocial: No Integumentary: No Blood Disorders: No Family Medical History Patient reports no known family medical history. Review of Systems Time Seen by Provider: 13:37 Sepsis Event Evaluation Height, Weight, BMI Height: 5'4.00" Weight: 141lbs. 0.0oz. 63.739452fg; 24.2 BMI Method:Stated Exam Exam Vital Signs Date Time Temp Pulse Resp B/P (MAP) Pulse Ox O2 Delivery O2 Flow Rate FiO2 04/22/19 07:58 100.4 04/22/19 07:00 103.0 04/22/19 06:19 103.3 04/22/19 06:00 103.3 04/22/19 04:00 100.7 112 18 115/78 (90) 98 Room Air 04/22/19 02:12 100.2 04/22/19 01:40 100.2 04/22/19 00:45 101.7 113 20 126/78 (94) 98 Room Air 04/21/19 22:34 98.4 90 20 123/82 (96) 98 Room Air 04/21/19 22:34 98.4 90 20 123/82 98 Room Air 04/21/19 22:30 Room Air 04/21/19 22:27 98.4 91 17 116/75 (89) 98 Room Air 04/21/19 20:45 100.7 04/21/19 16:15 103.3 04/21/19 15:40 103.3 126 20 148/83 (104) 96 I & O 04/22/19 07:00 Intake Total 3610 ml Output Total 700 ml Balance 2910 ml Height & Weight Height: 5'4.00" Weight: 141lbs. 0.0oz. 63.812877ku; 24.2 BMI Method:Stated General Appearance: Anxious, Mild Distress HEENT: PERRL/EOMI, Normal ENT Inspection, Pharynx Normal Neck: Full Range of Motion, Non Tender, Supple Respiratory: Chest Non Tender, No Accessory Muscle Use, No Respiratory Distress, Crackles, Decreased Breath Sounds Cardiovascular: Regular Rate, Rhythm, No Edema, No Gallop Capillary Refill: Less Than 3 Seconds Gastrointestinal: normal bowel sounds, non tender, soft, no organomegaly, no pulsatile mass; No guarding; other (negative for psoas signs, mesenteric signs, Rovsing sign, Gunderson's sign, McBurney's point tenderness or rebound tenderness.) Extremity: Normal Capillary Refill, No Pedal Edema Neurologic/Psychiatric: Alert, Oriented x3 Skin: Normal Color, Warm/Dry Lymphatic: No Adenopathy Results Lab Laboratory Tests 04/21/19 15:50 04/22/19 07:15 Assessment/Plan Assessment/Plan Sepsis -RVP pending -urine legionella pending -IVF -Continue Cefepime, and Doxy Tick panel pending Meningitis -S/p Lumbar puncture Elevated LFTs -Hepatitis panel pending UTI Anemia SUZANNA CASTANO DO Apr 22, 2019 08:42
--- NOTE | 2019-04-22 08:50 | NUR ---
Pt is on airborne precautions for possible meningitis. Ruby ELKINS said she would ask the pt if they would like pastoral support. If so, chaplains will follow up as able. No jose alfredo affiliation known at this time.
[2019-04-22 09:11] LABS: EOSINOPHILS % (MANUAL) 2 %; LYMPHOCYTES % (MANUAL) 3 %; MONOCYTES % (MANUAL) 10 %; NEUTROPHILS % (MANUAL) 81 %; REACTIVE LYMPHOCYTES 4 %
[2019-04-22 09:12] LABS: ELLIPT/OVALOCYTES SLIGHT; SPHEROCYTES SLIGHT; TEAR DROP CELLS SLIGHT
[2019-04-22] MEDS: CEFEPIME 2,000 MG/SWFI 20 ML IV PUSH IV SCH ×4 (10:05→21:36)
[2019-04-22] MEDS: DOXYCYCLINE INJECTION 100 MG in NS (IVPB) 100 ML IV SCH ×2 (10:06→21:36)
[2019-04-22 12:48] VITALS: BP 109/72
--- NOTE | 2019-04-22 13:47 | NUR ---
PT IS ON DROPLET PRECAUTIONS NOW PER DR BECERRA -- [facility] WILL GET PROPER ISOLATION TO CART --
--- NOTE | 2019-04-22 13:48 | NUR ---
PT IS PENTECOSTALISM AND REFUSED PASTORAL VISIT
[2019-04-22 16:15] VITALS: BP 121/79
[2019-04-22 19:40] VITALS: BP 107/67
[2019-04-22 23:15] VITALS: BP 95/61
[2019-04-23 04:00] VITALS: BP 115/76
[2019-04-23] MEDS: KETOROLAC 30 MG/ML VIAL IVP PRN (04:29)
[2019-04-23 06:53] LABS: HEPATITIS C ANTIBODY C Non-Reactive (Non-Reactive)
--- NOTE | 2019-04-23 07:00 | Pulmonary Progress Note ---
Subjective Time Seen by a Provider: 11:56 Subjective/Events-last exam Pt appears to be doing better. Sepsis Event Evaluation Height, Weight, BMI Height: 5'4.00" Weight: 141lbs. 0.0oz. 63.496346mv; 24.2 BMI Method:Stated Focused Exam Lactate Level 04/21/19 15:50: Lactic Acid Level 1.07 Exam Exam Vital Signs Date Time Temp Pulse Resp B/P (MAP) Pulse Ox O2 Delivery O2 Flow Rate FiO2 04/23/19 04:00 100.6 81 17 115/76 (89) 98 Room Air 04/22/19 23:15 97.9 81 17 95/61 (72) 99 Room Air 04/22/19 21:36 99.3 04/22/19 20:00 Room Air 04/22/19 19:40 103.7 112 20 107/67 (80) 96 Room Air 04/22/19 19:37 103.9 04/22/19 16:15 99.8 89 20 121/79 (93) 100 Room Air 04/22/19 12:48 98.2 85 20 109/72 (84) 100 Room Air 04/22/19 09:52 97.5 04/22/19 09:52 97.5 04/22/19 08:00 98 Room Air 04/22/19 07:58 100.4 I & O 04/23/19 07:00 Intake Total 2700 ml Output Total 1850 ml Balance 850 ml Height & Weight Height: 5'4.00" Weight: 141lbs. 0.0oz. 63.978875rn; 24.2 BMI Method:Stated General Appearance: No Apparent Distress, WD/WN HEENT: Moist Mucous Membranes; No Scleral Icterus (L), No Scleral Icterus (R) Neck: Full Range of Motion, Normal Inspection, Non Tender, Supple Respiratory: Lungs Clear, No Accessory Muscle Use, No Respiratory Distress Cardiovascular: Regular Rate, Rhythm, No Edema, No Murmur, Normal Peripheral Pulses Capillary Refill: Less Than 3 Seconds Gastrointestinal: normal bowel sounds, non tender, soft, no organomegaly, no pulsatile mass; No guarding; other (negative for psoas signs, mesenteric signs, Rovsing sign, Gunderson's sign, McBurney's point tenderness or rebound tenderness.) Extremity: Normal Capillary Refill, Non Tender, No Calf Tenderness, No Pedal Edema Neurologic/Psychiatric: Alert, Oriented x3, Normal Mood/Affect; No Aphasia, No Facial Droop Skin: Normal Color, Warm/Dry Results Lab Laboratory Tests 04/21/19 15:50 04/22/19 07:15 Assessment/Plan Assessment/Plan Sepsis -RVP pending -Repeat labs -urine legionella pending -IVF - Cefepime, and Doxy Tick panel pending Meningitis -S/p Lumbar puncture Elevated LFTs -Hepatitis panel pending UTI Anemia Pt is ok from pulmonary standpoint for discharge. SUZANNA CASTANO DO Apr 23, 2019 07:00
[2019-04-23 08:00] LABS: BASOPHILS % (AUTO) 0 % (0-10); EOSINOPHILS # (AUTO) 0.4 10^3/uL (0.0-0.3); EOSINOPHILS % (AUTO) 4 % (0-10); HEMATOCRIT 38 % (40-54); HEMOGLOBIN 12.5 G/DL (13.3-17.7); LYMPHOCYTES % (AUTO) 25 % (12-44); MEAN CORPUSCULAR HEMOGLOBIN 28 PG (25-34); MEAN CORPUSCULAR HGB CONC 33 G/DL (32-36); MEAN CORPUSCULAR VOLUME 85 FL (80-99); MEAN PLATELET VOLUME 9.8 FL (7.4-10.4); MONOCYTES # (AUTO) 0.7 X 10^3 (0.0-1.0); MONOCYTES % (AUTO) 9 % (0-12); NEUTROPHILS # (AUTO) 4.9 X 10^3 (1.8-7.8); NEUTROPHILS % (AUTO) 62 % (42-75); PLATELET COUNT 188 10^3/uL (130-400); RED CELL DISTRIBUTION WIDTH 12.6 % (10.0-14.5)
[2019-04-23 08:16] LABS: SODIUM 139 MMOL/L (135-145)
[2019-04-23 08:17] LABS: ALANINE AMINOTRANSFERASE 59 U/L (0-55); ALBUMIN 3.4 GM/DL (3.2-4.5); ALKALINE PHOSPHATASE 86 U/L (40-136); BILIRUBIN,TOTAL 0.3 MG/DL (0.1-1.0); BUN/CREATININE RATIO 11; CALCIUM 8.2 MG/DL (8.5-10.1); CARBON DIOXIDE 26 MMOL/L (21-32); CHLORIDE 105 MMOL/L (98-107); CREATININE SERUM 0.85 MG/DL (0.60-1.30); GFR ESTIMATED > 60; GLUCOSE 116 MG/DL (70-105); MAGNESIUM 2.1 MG/DL (1.6-2.4); POTASSIUM 3.7 MMOL/L (3.6-5.0)
[2019-04-23] MEDS: CEFEPIME 2,000 MG/SWFI 20 ML IV PUSH IV SCH ×4 (08:43→21:22)
[2019-04-23] MEDS: DOXYCYCLINE INJECTION 100 MG in NS (IVPB) 100 ML IV SCH ×2 (08:44→21:22)
[2019-04-23 08:57] VITALS: BP 111/76
--- NOTE | 2019-04-23 11:06 | Progress Note - Hospitalist ---
Subjective HPI/CC On Admission Date Seen by Provider: Apr 23, 2019 Time Seen by Provider: 10:58 Taken from ER note "Patient presents the ER from the urgent care where he was seen in [place], [place] with chief complaint of symptoms starting Sunday including fever Tmax of 102.5, headache, dysuria, right flank pain. No history of kidney stones. No significant medical history. Denies any surgeries. No trauma. No sick contacts. He has been in the country for about 2 months originating from [place], he was in [place] 1 month ago for business. He works with a [employer] company. He has not used any antibiotics. He did use some bapb-irt-uuyaygg medicine that has phenylephrine, chlorpheniramine and paracetamol in it recently. He says it did not help the headache much. He does not have a history of headaches. No vomiting diarrhea or constipation. Last bowel movement was about 11:00 yesterday morning and was normal, well formed. He has some mild discomfort in epigastric that did cause nausea. He does not recall any tick bite, spider bite, bug bite. He did have a itchy rash on his right shoulder that he been treating with lotion for the past couple weeks. For the past 4 days that he's had fever he's also had night sweats and difficulty sleeping. No cough shortness of breath chest pain." He also denies changes in hearing, vision and dizzness. Subjective/Events-last exam Pt reports feeling better today but still have fever overnight. Discussed with RN. No needs or concerns today. Awaiting cultures. Focused Exam Lactate Level 04/21/19 15:50: Lactic Acid Level 1.07 Objective Exam Vital Signs Vital Signs Date Time Temp Pulse Resp B/P (MAP) Pulse Ox O2 Delivery O2 Flow Rate FiO2 04/23/19 08:57 97.9 89 20 111/76 (88) 98 Room Air Capillary Refill : Less Than 3 Seconds General Appearance: No Apparent Distress, WD/WN Respiratory: Lungs Clear, No Accessory Muscle Use, No Respiratory Distress Cardiovascular: Regular Rate, Rhythm, No Murmur Gastrointestinal: Normal Bowel Sounds, Non Tender, Soft Neurologic/Psychiatric: Alert, Oriented x3, Normal Mood/Affect Results/Procedures Lab Laboratory Tests 04/23/19 07:50 Patient resulted labs reviewed. Imaging: Reviewed Imaging Report Assessment/Plan Assessment and Plan Assess & Plan/Chief Complaint sepsis UA with no growth Blood cultures- no growth CSFculture- no growth Rapid Flu- negative [place] negative, rapid flu negative, monospot negative, hepatitis panel negative CMV indicative of past exposure abdominal/pelvic CT nonobstructive kidney stone in R ureter- asymptomatic at this time head CT/CXR- negative Continue IV doxycycline and cefepime checking for [place], EBV, legionella antigen, RVP, e. chaffeensis Pulmonology consult FENGIPPX hep lock fluids regular diet SCDs Diagnosis/Problems Diagnosis/Problems (1) Fever, unknown origin (2) History of recent travel Clinical Quality Measures DVT/VTE Risk/Contraindication: Risk Factor Score Per Nursin RFS Level Per Nursing on Admit: 2=Moderate ROXANNA BECERRA MD Apr 23, 2019 11:06 am
--- NOTE | 2019-04-23 11:43 | NUR ---
In my collaboration with the nurse, she was able to ascertain from the pt that he is Sabianist and declines pastoral care. The pt shared with her that he is Cymro. The nurse said at times his accent is difficult for her to discern. I recommended that we offer him a customer equipment engineer through the language line so he knows this is available, and also validated staff use of a customer equipment engineer to ease communication. After speaking with the nurse again, she offered his a customer equipment engineer and he confirmed that he can understand Indonesian well most of the time. Use of the hospital's language line is encouraged to ensure medical terminology is well communicated.
[2019-04-23 12:00] VITALS: BP 116/75
[2019-04-23] MEDS: ACETAMINOPHEN 500 MG TAB (TYLENOL) PO PRN ×2 (14:11→21:24)
[2019-04-23 14:13] LABS: PARAINFLU 2 PCR Not Detected (Not Detected)
[2019-04-23 15:48] LABS: PARAINFLU 1 PCR Not Detected (Not Detected); RSV PCR Not Detected (Not Detected)
[2019-04-23 16:19] VITALS: BP 129/71
[2019-04-23 20:04] VITALS: BP 126/77
[2019-04-23 23:20] VITALS: BP 105/94
[2019-04-24] MEDS: KETOROLAC 30 MG/ML VIAL IVP PRN (04:20)
[2019-04-24 04:54] VITALS: BP 115/72
[2019-04-24 08:00] VITALS: BP 124/81
[2019-04-24] MEDS: DOXYCYCLINE INJECTION 100 MG in NS (IVPB) 100 ML IV SCH (09:33)
[2019-04-24] MEDS: CEFEPIME 2,000 MG/SWFI 20 ML IV PUSH IV SCH ×2 (09:33)
--- NOTE | 2019-04-24 09:53 | Pulmonary Progress Note ---
Subjective Time Seen by a Provider: 13:40 Sepsis Event Evaluation Height, Weight, BMI Height: 5'4.00" Weight: 141lbs. 0.0oz. 63.322740hu; 24.2 BMI Method:Stated Focused Exam Lactate Level 04/21/19 15:50: Lactic Acid Level 1.07 Exam Exam Vital Signs Date Time Temp Pulse Resp B/P (MAP) Pulse Ox O2 Delivery O2 Flow Rate FiO2 04/24/19 04:54 100.9 91 20 115/72 (86) 96 Room Air 04/24/19 02:00 99.5 04/23/19 23:20 101.0 95 18 105/94 (98) 96 Room Air 04/23/19 21:54 101.6 04/23/19 21:24 102.9 04/23/19 20:59 Room Air 04/23/19 20:04 101.6 99 20 126/77 (93) 97 Room Air 04/23/19 18:50 100.6 96 04/23/19 16:19 99.0 106 20 129/71 (90) 96 Room Air 04/23/19 14:30 102.1 04/23/19 14:11 101.3 04/23/19 12:00 99.1 82 20 116/75 (89) 99 Room Air I & O 04/24/19 07:00 Intake Total 1540 ml Output Total 200 ml Balance 1340 ml Height & Weight Height: 5'4.00" Weight: 141lbs. 0.0oz. 63.606942fj; 24.2 BMI Method:Stated General Appearance: No Apparent Distress, WD/WN HEENT: Moist Mucous Membranes; No Scleral Icterus (L), No Scleral Icterus (R) Neck: Full Range of Motion, Normal Inspection, Non Tender, Supple Respiratory: Lungs Clear, No Accessory Muscle Use, No Respiratory Distress Cardiovascular: Regular Rate, Rhythm, No Edema, No Murmur, Normal Peripheral Pulses Capillary Refill: Less Than 3 Seconds Gastrointestinal: normal bowel sounds, non tender, soft, no organomegaly, no pulsatile mass; No guarding; other (negative for psoas signs, mesenteric signs, Rovsing sign, Gunderson's sign, McBurney's point tenderness or rebound tenderness.) Extremity: Normal Capillary Refill, Non Tender, No Calf Tenderness, No Pedal Edema Neurologic/Psychiatric: Alert, Oriented x3, Normal Mood/Affect; No Aphasia, No Facial Droop Skin: Normal Color, Warm/Dry Results Lab Laboratory Tests 04/23/19 07:50 Assessment/Plan Assessment/Plan Sepsis -IVF -Cefepime, and Doxy Tick panel pending -[place] is still pending. Meningitis -S/p Lumbar puncture Elevated LFTs -Hepatitis panel pending UTI Anemia Pt is ok from pulmonary standpoint for discharge. USZANNA CASTANO DO Apr 24, 2019 09:53
[2019-04-24 12:00] VITALS: BP 128/79
[2019-04-24] MEDS ORDERED: DOXY100C PO (13:33)
[2019-04-24] MEDS ORDERED: CEFD300C3 PO (13:33)
--- NOTE | 2019-04-24 13:35 | Discharge Summary ---
Diagnosis/Chief Complaint Date of Admission Apr 21, 2019 at 22:35 Date of Discharge Discharge Date: Apr 24, 2019 Admission Diagnosis Primary Care No,Local Physician Discharge Diagnosis (1) Fever, unknown origin (2) History of recent travel Discharge Summary Discharge Physical Exam Allergies: Coded Allergies: No Known Drug Allergies (Unverified , 04/21/19) Vitals & I&Os Vital Signs Date Time Temp Pulse Resp B/P (MAP) Pulse Ox O2 Delivery O2 Flow Rate FiO2 04/24/19 18:05 96 16 128/79 98 Room Air 04/24/19 12:00 98.4 General Appearance: No Apparent Distress, WD/WN Respiratory: Lungs Clear, No Accessory Muscle Use, No Respiratory Distress Cardiovascular: Regular Rate, Rhythm, No Murmur Gastrointestinal: Normal Bowel Sounds, Soft Neurologic/Psychiatric: Alert, Oriented x3 Hospital Course Patient is a 43-year-old Irish male who presented to the emergency department due to fever and headache. He reported his symptoms have been going on for a couple of days and he was seen in a walk-in clinic at his work and refe rred to the emergency department. He complained of dysuria and right-sided flank pain. His urine was equivocal for urinary tract infection and he got a CT of his abdomen to evaluate for kidney stones. A nonobstructing 4 mm kidney stone was noted but otherwise his CT was unremarkable. His temperature was 103 and because of his headache he underwent lumbar puncture. CSF cell counts did not indicate bacterial meningitis and cultures were negative. He was admitted to observation for fever without identifiable source. Due to his recent international travel abroad infectious workup was initiated in consultation with [facility] infectious disease by Dr. Paula in the emergency department. Throughout his entire admission he was well-appearing. He had intermittent fevers but overall the fever curve was trending down. At the time of discharge his respiratory viral panel, hepatitis panel, Lyme screen, rapid strep, rapid influenza, Monospot, ehrlichiosis, [place] spotted fever, tularemia, and CMV testing were all negative. Critical care was consulted during this admission. He clinically improved on cefepime and doxycycline and these were transitioned to oral Omnicef and oral doxycycline at discharge. He has close follow-up early next week. And strict return precautions were discussed with patient for recurrent fever or worsening symptoms. Labs (last 24 hrs) Microbiology 04/21/19 Blood Culture - Preliminary, Resulted No growth 04/21/19 Gram Stain - Final, Complete 04/21/19 CSF Culture - Final, Complete No growth 04/21/19 Throat Culture - Final, Complete No Beta Strep isolated 04/21/19 Urine Culture - Final, Complete NO GROWTH Patient resulted labs reviewed. Imaging: Reviewed Imaging Report Discussion & Recommendations Discharge Planning: >30 minutes discharge planning Discharge Home Medications: Active Scripts Active Vibramycin (Doxycycline Hyclate) 100 Mg Capsule 100 Mg PO BID Cefdinir 300 Mg Capsule 300 Mg PO BID Reported [Mixagrip Flu] 1 Tab PO QID PRN PARACETAMOL 500MG, PHENYLEPHRINE 10MG, CHLORPHENERAMINE 2MG Instructions to patient/family Please see electronic discharge instructions given to patient. Clinical Quality Measures DVT/VTE Risk/Contraindication: Risk Factor Score Per Nursin RFS Level Per Nursing on Admit: 2=Moderate ROXANNA BECERRA MD Apr 24, 2019 13:35
--- NOTE | 2019-04-24 14:30 | Discharge Inst-Simple/Standard ---
Discharge Inst-Standard Patient Instructions/Follow Up Plan of Care/Instructions/FU: Please continue to take your medications as written. Please follow up next week as scheduled with JACKET CHANGER Obi. Activity as Tolerated: Yes Discharge Diet: No Restrictions Return to The Hospital For: Worsening fever (over 103), shortness of breath, confusion, chest pain, if you feel you are getting worse. ROXANNA BECERRA MD Apr 24, 2019 2:30 pm
--- NOTE | 2019-04-24 15:50 | NUR ---
WRITTEN AND VERBAL DISCHARGE INSTRUCTIONS GONE OVER WITH PT. PT VERBALIZED UNDERSTANDING. PT IS AWAITING RIDE AND WILL NOTIFY STAFF RIDE IS HERE.
[2019-04-24 18:05] VITALS: BP 128/79
== END 2019-04-24 14:02 | disposition home or self-care (01) ==
LOC: ER 15:32 → UNDOADMOB 21:25 → 4TH 21:25
PROVIDERS: ADMIT Internal Medicine; ATTEND Internal Medicine
DX: R50.9 Fever, unspecified (principal); N39.0 Urinary tract infection, site not specified; A41.9 Sepsis, unspecified organism; R51 Headache; Z79.899 Other long term (current) drug therapy
CPT/HCPCS: 36415; 70450; 71046; 74176; 80053; 80074; 81000; 82945; 83605; 83735; 84100; 84157; 85007; 85025; 85027; 85045; 85610; 85730; 86308; 86618; 86644; 86645; 86663; 86664; 86665; 86666; 86668; 86757; 86788; 86789; 87040; 87070; 87088; 87205; 87207; 87430; 87631; 87804; 89051; 93306; 96361; 96365; 96375; G0378